=== PATIENT | female | born 1995 | race Caucasian/White ===

== ENCOUNTER 2024-08-27 23:50 | Emergency (ER) | payer OTHER, SELFPAY ==
[2024-08-28] MEDS ORDERED: diphenhydrAMINE 50 MG/ML VIAL ONE (01:10)
[2024-08-28] MEDS ORDERED: Ketorolac Tromethamine 30 MG (1 mL) VIAL ONE (01:10)
[2024-08-28] MEDS ORDERED: Dexamethasone 10 MG/ML VIAL ONE (01:10)
[2024-08-28] MEDS ORDERED: Prochlorperazine 10 MG/2 ML VIAL ONE (01:10)
[2024-08-28 01:18] LABS: BHCG - Serum Negative (NEGATIVE); Pregs Control Background? CLEAR/WHITE (CLR/WHITE); Pregs Control Bar Appear? YES (CONTROL BAR)
[2024-08-28 01:21] LABS: Anion Gap 15 mmol/L (10-20); BUN (Urea Nitrogen) 17 mg/dL (7.0-18.7); Calc. Creatinine Clearance 0 mL/min (70-130); Calcium 9.8 mg/dL (7.8-10.44); Carbon Dioxide 26 mmol/L (22-29); Chloride 103 mmol/L (98-107); Estimated GFR 101; Glucose 99 mg/dL (70-105); Potassium 3.5 mmol/L (3.5-5.1); Sodium 140 mmol/L (136-145)
[2024-08-28 01:30] LABS: Hematocrit 38.5 % (34.9-44.5); Hemoglobin 13.4 g/dL (12.0-15.5); MDiff Complete? YES; Mean Corpuscular HGB CONC 34.8 g/dL (32.0-36.0); Mean Corpuscular Volume 83.3 fL (81.6-98.3); Mean Platelet Volume 9.3 fL (7.4-10.4); Platelet Count 285 10x3/uL (150-450); RBC Distribution Width 12.1 % (11.5-14.5); Red Blood Cell (RBC) Count 4.62 10x6/uL (3.90-5.03); White Blood Cell (WBC) Count 10.9 10x3/uL (3.5-10.5)
[2024-08-28 01:48] LABS: Band 6 % (5-11); Lymphocytes 27 % (21-51); Monocytes 6 % (0-10); Neutrophil 51 % (42-75); Reactive Lymphocytes 9 % (0-10)
[2024-08-28 01:53] LABS: Platelet Adequacy Comment Appears Adequate; RBC Morph Comment Within Normal Limits
== END 2024-08-28 01:50 | disposition home or self-care (01) ==
LOC: CSHERS 23:50
DX: R51.9 Headache, unspecified (principal)
CPT/HCPCS: 80048; 84703; 85025; 96374; 96375; J0780; J1100; J1200; J1885